=== PATIENT | female | born 1980 | race Caucasian/White ===

== ENCOUNTER 2018-09-02 19:29 | Emergency (ER) | payer MEDICAID, OTHER ==
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
[2018-09-02] MEDS ORDERED: IPRATROPIUM/ALBUTEROL 3 ML DEYVIAL IH ONE (19:51)
[2018-09-02] MEDS ORDERED: IOPAMIDOL (ISOVUE 370) 100 ML BTL IV ONE (19:57)
[2018-09-03 01:35] VITALS: BP 107/64
--- NOTE | 2018-09-03 06:16 | CPEKG ---
Test Reason : OPEN Blood Pressure : / mmHG Vent. Rate : 058 BPM Atrial Rate : 057 BPM P-R Int : 192 ms QRS Dur : 082 ms QT Int : 517 ms P-R-T Axes : 048 020 -21 degrees QTc Int : 508 ms Sinus rhythm Borderline T wave abnormalities Borderline prolonged QT interval Confirmed by Mounika Garvey ([id number]) on 09/03/2018 6:16:21 AM Referred By: Mounika Garvey Confirmed By:Mounika Garvey
--- NOTE | 2018-09-03 06:16 | CPEKG ---
Test Reason : OPEN Blood Pressure : / mmHG Vent. Rate : 059 BPM Atrial Rate : 059 BPM P-R Int : 202 ms QRS Dur : 078 ms QT Int : 442 ms P-R-T Axes : 063 028 017 degrees QTc Int : 438 ms Sinus rhythm Borderline prolonged TX interval Borderline T abnormalities, anterior leads Confirmed by Mounika Garvey ([id number]) on 09/03/2018 6:16:07 AM Referred By: Mounika Garvey Confirmed By:Mounika Garvey
--- NOTE | 2018-09-03 19:52 | CPEKG ---
Test Reason : OPEN Blood Pressure : / mmHG Vent. Rate : 058 BPM Atrial Rate : 057 BPM P-R Int : 202 ms QRS Dur : 071 ms QT Int : 431 ms P-R-T Axes : 057 018 007 degrees QTc Int : 424 ms Sinus rhythm Borderline prolonged SC interval Borderline T abnormalities, anterior leads Confirmed by Deejay Dixon ([id number]) on 09/03/2018 7:51:29 PM Referred By: Deejay Dixon Confirmed By:Deejay Dixon
== END 2018-09-03 01:35 | disposition home or self-care (01) ==
DX: R07.89 Other chest pain (principal); R06.00 Dyspnea, unspecified
CPT/HCPCS: 82435-PO; 82565-PO; 82947-PO; 84132-PO; 84295-PO; 84484-ER; 84520-PO; 85014-ER; Q9967